=== PATIENT | female | born 1990 | race Caucasian/White ===

== ENCOUNTER → 2019-08-10 | Outpatient (CLI) | payer OTHER ==
[2019-08-10 12:23] LABS: BASO # 0.1 10^3/uL (0.0-0.2); BASO % 0.9 % (0.0-1.0); EOS # 0.2 10^3/uL (0.0-0.5); EOS % 3.3 % (0.0-3.0); HEMATOCRIT 40.2 % (36.0-47.0); HEMOGLOBIN 13.2 g/dl (12.0-15.5); LYMPH # 2.3 10^3/uL (1.5-5.0); LYMPH % 33.6 % (24.0-44.0); MEAN CORPUSCULAR HEMOGLOBIN 29.1 pg (27.0-33.0); MEAN CORPUSCULAR HGB CONC 32.8 g/dl (32.0-36.5); MEAN CORPUSCULAR VOLUME 88.5 fl (80.0-96.0); MONO # 0.5 10^3/uL (0.0-0.8); MONO % 7.1 % (0.0-5.0); NEUTROPHILS # 3.8 10^3/uL (1.5-8.5); NEUTROPHILS % 54.8 % (36.0-66.0); PLATELET COUNT, AUTOMATED 261 10^3/uL (150-450); RED BLOOD COUNT 4.54 10^6/uL (4.00-5.40); WHITE BLOOD COUNT 6.9 10^3/uL (4.0-10.0)
[2019-08-10 13:07] LABS: ALT/SGPT 16 U/L (12-78); BILIRUBIN,TOTAL 0.6 MG/DL (0.2-1.0); BLOOD UREA NITROGEN 14 MG/DL (7-18); CALCIUM LEVEL 9.1 MG/DL (8.5-10.1); CARBON DIOXIDE LEVEL 27 MEQ/L (21-32); CHLORIDE LEVEL 104 MEQ/L (98-107); CREATININE FOR GFR 0.81 MG/DL (0.55-1.30); FREE T4 0.85 NG/DL (0.76-1.46); GLOMERULAR FILTRATION RATE > 60.0 (>60); GLUCOSE, FASTING 99 MG/DL (70-100); POTASSIUM SERUM 4.5 MEQ/L (3.5-5.1); SODIUM LEVEL 139 MEQ/L (136-145); TOTAL 25(OH) VITAMIN D 36.5 NG/ML (30.0-100.0); TOTAL PROTEIN 7.2 GM/DL (6.4-8.2)
== END ==
LOC: M LRY 09:20
PROVIDERS: ATTEND Family Medicine
DX: F41.1 Generalized anxiety disorder (principal)

== ENCOUNTER 2020-05-21 13:02 | Emergency (ER) | payer OTHER ==
[~2020-05-21] VITALS: Ht 170.2 cm; Wt 86.4 kg
[2020-05-21] MEDS ORDERED: HM A10TA PO (13:08)
[2020-05-21] MEDS ORDERED: PROZ20CA11 PO (13:08)
[2020-05-21] MEDS ORDERED: PRENTAB53 PO (13:09)
--- NOTE | 2020-05-21 15:37 | REPVR ---
PROCEDURE INFORMATION: Exam: US First Trimester, Transabdominal Exam date and time: 05/21/2020 3:13 PM Age: 29 years old Clinical indication: complicated by abdominal or pelvic pain; Generalized abdominal pain; First trimester; Gestational age or lmp: 04/13/2020; ; Additional info: HX miscarriage, concerned of TECHNIQUE: Imaging protocol: Real-time transabdominal obstetrical ultrasound of the maternal pelvis and a first trimester , less than 14 weeks 0 days, with image documentation. COMPARISON: No relevant prior studies available. FINDINGS: Gestation: Not demonstrated Embryonic/ heart rate: Embryo not visible. Placenta: Unremarkable. No subchorionic bleed. Amniotic fluid: Amniotic fluid is normal for gestational age. BIOMETRY: Gestational age (AUA): A 7 x 5 x 8 mm ring in the uterine fundus suggests gestational sac with mean diameter of 6.7 mm corresponding to gestational age of 5 weeks 2 days. There is not yet development of a yolk sac or measurable fetus for more definite date. MATERNAL: Uterus: The uterus is anteverted on the transabdominal images and measures 9.2 x 6.1 x 5.5 cm. It is retroverted on the transvaginal images. Cervix: Unremarkable. Right adnexa: The right ovary measures 2.6 x 4 cm and contains a ring lesion measuring 2.2 x 2.4 cm probably representing a corpus luteum with increased peripheral blood flow. Left adnexa: The left ovary measures 2.8 x 2.5 x 1.3 cm. Intraperitoneal space: No intraperitoneal free fluid. IMPRESSION: 1. A 7 x 5 x 8 mm ring in the uterine fundus suggests gestational sac with mean diameter of 6.7 mm corresponding to gestational age of 5 weeks 2 days. There is not yet development of a yolk sac or measurable fetus for more definite date. 2. The right ovary measures 2.6 x 4 cm and contains a ring lesion measuring 2.2 x 2.4 cm probably representing a corpus luteum with increased peripheral blood flow. RECOMMENDATION: Follow-up ultrasound in 1-2 weeks could provide more accurate dating. Electronically signed by: Scar Tena On 05/21/2020 15:36:51 PM
[2020-05-21 16:04] VITALS: BP 115/78
== END 2020-05-21 16:05 | disposition home or self-care (01) ==
LOC: M ED 13:02
DX: Z34.01 Encounter for supervision of normal first pregnancy, first trimester (principal); Z3A.01 Less than 8 weeks gestation of pregnancy; Z79.899 Other long term (current) drug therapy

== ENCOUNTER → 2020-05-29 | Outpatient (CLI) | payer OTHER ==
[~2020-05-29] MED LIST: HM A10TA PO; PRENTAB53 PO; PROZ20CA11 PO
== END ==
LOC: M WUC 11:28
PROVIDERS: ATTEND Family Medicine
DX: O02.81 Inappropriate change in quantitative human chorionic gonadotropin (hCG) in early pregnancy (principal)

== ENCOUNTER → 2020-07-01 | Outpatient (CLI) | payer OTHER | LOC: M PLALAB 14:24 | PROVIDERS: ATTEND Advanced Practice Midwife | DX: Z34.81 Encounter for supervision of other normal pregnancy, first trimester (principal) ==

== ENCOUNTER → 2020-07-01 | Outpatient (REF) | payer OTHER ==
[2020-07-01 17:34] LABS: HEMATOCRIT 35.5 % (36.0-47.0); HEMOGLOBIN 11.4 g/dl (12.0-15.5); MEAN CORPUSCULAR HEMOGLOBIN 28.5 pg (27.0-33.0); MEAN CORPUSCULAR HGB CONC 32.1 g/dl (32.0-36.5); MEAN CORPUSCULAR VOLUME 88.8 fl (80.0-96.0); PLATELET COUNT, AUTOMATED 278 10^3/uL (150-450); WHITE BLOOD COUNT 9.6 10^3/uL (4.0-10.0)
[2020-07-01 18:51] LABS: HEPATITIS C VIRUS ABY INDEX 0.1 INDEX (<0.8); HIV 1&2 SCREEN CENTAUR NEGATIVE (NEGATIVE)
== END ==
LOC: M PLALAB 14:23
PROVIDERS: ATTEND Advanced Practice Midwife
DX: Z34.91 Encounter for supervision of normal pregnancy, unspecified, first trimester (principal)

== ENCOUNTER 2020-07-31 09:23 | Emergency (ER) | payer OTHER ==
[~2020-07-31] VITALS: Ht 170.2 cm; Wt 90.5 kg
[2020-07-31] MEDS ORDERED: BUTA-198 (09:31)
[2020-07-31 09:57] LABS: BASO % 0.3 % (0.0-1.0); EOS # 0.2 10^3/uL (0.0-0.5); EOS % 1.7 % (0.0-3.0); HEMATOCRIT 31.7 % (36.0-47.0); HEMOGLOBIN 10.5 g/dl (12.0-15.5); LYMPH # 2.1 10^3/uL (1.5-5.0); LYMPH % 19.1 % (24.0-44.0); MEAN CORPUSCULAR HEMOGLOBIN 28.8 pg (27.0-33.0); MEAN CORPUSCULAR HGB CONC 33.1 g/dl (32.0-36.5); MEAN CORPUSCULAR VOLUME 86.8 fl (80.0-96.0); MONO # 0.5 10^3/uL (0.0-0.8); NEUTROPHILS # 7.9 10^3/uL (1.5-8.5); NEUTROPHILS % 73.2 % (36.0-66.0); PLATELET COUNT, AUTOMATED 251 10^3/uL (150-450); RED BLOOD COUNT 3.65 10^6/uL (4.00-5.40); WHITE BLOOD COUNT 10.8 10^3/uL (4.0-10.0)
--- NOTE | 2020-07-31 11:10 | REP ---
INDICATION: 15.5 weeks, heavy vaginal bleeding, lower pelvic pain COMPARISON: 05/21/2020 TECHNIQUE: Transabdominal obstetrical ultrasound with color Doppler evaluation. FINDINGS: Examination demonstrates a single live intrauterine in variable presentation. motion is identified by technologist. Placenta is noted posterior and grade 0 without evidence for placenta previa or abruption. Amniotic fluid volume is normal. Cervix measures 3.1 cm in length and appears closed.. Gestational age by LMP 15 weeks 4 days with ANILA 01/18/2021. Gestational age by current measurements 15 weeks 6 days with ANILA 01/16/2021. FHR equals 156 beats per minute. BPD: 3.3 cm 16 weeks 1 day HC: 12.0 cm 16 weeks 0 days AC: 9.8 cm 15 weeks 6 days FL: 1.9 cm 15 weeks 5 days HL: 1.9 cm 15 weeks 4 days HC/AC: 1.22 Estimated weight 137 grams (65thpercentile). Anatomical assessment demonstrates normal structures including cranium, choroid plexus, cavum, cerebellum/posterior fossa, lungs, diaphragm, stomach, cord insertion/three-vessel cord, kidneys/bladder, spine, and extremities. Incomplete evaluation of the facial features, and heart/ventricular outflow tracts. IMPRESSION: Single live intrauterine in variable presentation demonstrating appropriate estimated weight and growth. Anatomical assessment is incomplete and warrants re-evaluation/follow-up. <Electronically signed by Alec Zamorano > 07/31/20 [id number]
[2020-07-31 11:33] VITALS: BP 120/62
== END 2020-07-31 11:35 | disposition home or self-care (01) ==
LOC: M ED 09:23
DX: O26.852 Spotting complicating pregnancy, second trimester (principal); O99.012 Anemia complicating pregnancy, second trimester; O99.342 Other mental disorders complicating pregnancy, second trimester; F41.9 Anxiety disorder, unspecified; Z3A.15 15 weeks gestation of pregnancy; Z79.899 Other long term (current) drug therapy; Z91.048 Other nonmedicinal substance allergy status

== ENCOUNTER → 2020-08-20 | Outpatient (CLI) | payer OTHER ==
[~2020-08-20] MED LIST changes: +BUTA-198
--- NOTE | 2020-08-20 12:45 | REP ---
INDICATION: ANATOMY. COMPARISON: None. TECHNIQUE: Ultrasound evaluation of the gravid uterus. FINDINGS: Single intrauterine gestation in a transverse lie with the head to the maternal right. The plan is placenta is posterior grade 0 maturity. There is no placenta previa. The placental insertion of the umbilical cord could not be identified. There is a three-vessel cord. Cervix measures 3.1 cm length. heart rate is 172 beats per minute. The amniotic fluid volume is severely diminished compatible with severe oligohydramnios. The composite ultrasound gestational age today is 17 weeks 3 days with an ANILA of 01/25/2021. Gestational age by LMP is 18 weeks 3 days with an ANILA of 01/18/2021. Estimated weight is 211 g, 0 lb-7 oz. This is the 16th percentile for 18 weeks 3 days. The following anatomic structures are identified and are unremarkable: Cranium, cavum septum pellucidum, falx, intracranial ventricles, choroid plexus, cerebellum, cisterna magna, stomach, bladder, right and left upper extremities, right left lower extremities, 3 vessel cord. Suboptimally demonstrated because of severe leg all hydramnios are the facial profile, upper lip, four-chamber view of the heart, cardiac left ventricular outflow tracts, diaphragm, right left kidneys and spine. IMPRESSION: Severe oligohydramnios. <Electronically signed by Jose Canales > 08/20/20 [id number]
== END ==
LOC: M WHC 11:01
PROVIDERS: ATTEND Specialist
DX: O41.02X0 Oligohydramnios, second trimester, not applicable or unspecified (principal); Z3A.17 17 weeks gestation of pregnancy
CPT/HCPCS: 76811; G0463

== ENCOUNTER 2020-08-26 13:30 | Inpatient (IN) | payer OTHER ==
[~2020-08-26] VITALS: Ht 170.2 cm; Wt 91.7 kg
[2020-08-26 13:46] VITALS: BP 115/56
[2020-08-26 14:25] LABS: BASO % 0.3 % (0.0-1.0); EOS # 0.2 10^3/uL (0.0-0.5); EOS % 1.3 % (0.0-3.0); HEMATOCRIT 30.9 % (36.0-47.0); HEMOGLOBIN 10.1 g/dl (12.0-15.5); LYMPH # 2.3 10^3/uL (1.5-5.0); LYMPH % 20.4 % (24.0-44.0); MEAN CORPUSCULAR HEMOGLOBIN 29.3 pg (27.0-33.0); MEAN CORPUSCULAR HGB CONC 32.7 g/dl (32.0-36.5); MEAN CORPUSCULAR VOLUME 89.6 fl (80.0-96.0); MONO # 0.5 10^3/uL (0.0-0.8); MONO % 4.8 % (0.0-5.0); NEUTROPHILS # 8.2 10^3/uL (1.5-8.5); NEUTROPHILS % 72.6 % (36.0-66.0); PLATELET COUNT, AUTOMATED 233 10^3/uL (150-450); RED BLOOD COUNT 3.45 10^6/uL (4.00-5.40); WHITE BLOOD COUNT 11.3 10^3/uL (4.0-10.0)
[2020-08-26] MEDS: miSOPROStol 200 MCG TAB (S0191) PO SCH ×3 (14:30→22:37)
[2020-08-26] MEDS: LR 1,000 ML IV SCH ×2 (14:31→22:36)
[2020-08-26 14:32] VITALS: BP 114/64
[2020-08-26 14:49] VITALS: BP 105/55
[2020-08-26 15:37] VITALS: BP 99/61
[2020-08-26 17:05] VITALS: BP 114/59
[2020-08-26 17:08] VITALS: BP 114/59
--- NOTE | 2020-08-26 18:42 | HPE ---
HISTORY AND PHYSICAL DATE OF ADMISSION: 08/26/2020 HISTORY OF PRESENT ILLNESS: Nara is a 29-year-old female 5, para 3-0-1-3, who is approximately 18 week gestation with an intrauterine demise (IUFD). She was also found to be anhydramnios on ultrasound. She did not report any leakage of fluid. She was sent here [facility] for admission to induce labor for the demise. Upon admission, the patient denies any bleeding. Occasional cramping. She has not had a heart beat since 08/22. She had an ultrasound today that again confirmed no heart beat. No fluid. Her record reviewed which was essentially unremarkable except for the last week with compliance of decreased fluid and now with no fluid. She was referred to the center for severe oligohydramnios. PAST MEDICAL HISTORY: 1. Abnormal Pap smear. 2. Anxiety and depression. PAST SURGICAL HISTORY: 1. [place] tooth extraction. 2. Colposcopy. SOCIAL HISTORY: The patient denies any alcohol, drug, or cigarette smoking. REVIEW OF SYSTEMS: Unremarkable. ALLERGIES: No known drug allergies. MEDICATIONS: vitamin. LABORATORY DATA: Blood type is AB negative. Rubella immune. Hepatitis negative. HIV negative. PHYSICAL EXAMINATION: GENERAL: Obese female in no acute distress. ABDOMEN: Soft, nontender, and nondistended. EXTREMITIES: No clubbing, cyanosis, or edema. VAGINAL: Fingertip, thick, and posterior. ASSESSMENT: 1. Intrauterine at 18 weeks with an intrauterine demise. 2. Anhydramnios. No evidence of rupture of membrane. PLAN: Patient admitted to labor and delivery. The process of induction of labor for demise was explained to the patient in great detail. We will proceed with Cytotec induction. Pain management also discussed. The patient is considering option. All questions answered. We will continue to monitor. [facility]
[2020-08-26] MEDS ORDERED: ONDANSETRON 4MG/2ML VIAL IV ONE (19:30)
[2020-08-26] MEDS ORDERED: FIORICET TAB PO ONE (19:30)
[2020-08-27] VITALS (7 sets, daily range): BP systolic 96–107; BP diastolic 52–64
[2020-08-27] MEDS ORDERED: PROMETHAZINE INJ 25 MG/ML VIAL (J2550) IV ONE ×2 (02:45→09:45)
[2020-08-27] MEDS ORDERED: BUTORPHANOL 2 MG/ML INJ (J0595) IV ONE (02:45)
[2020-08-27] MEDS: LR 1,000 ML IV SCH ×2 (04:52→09:35)
[2020-08-27] MEDS ORDERED: miSOPROStol 200 MCG TAB (S0191) PO ONE (08:00)
[2020-08-27] MEDS ORDERED: OXYTOCIN 30 UNITS IN 0.9% NaCl 500ML IV BAG (J2590) As Ordered ONE (10:31)
[2020-08-27] MEDS ORDERED: OXYTOCIN DRIP 30 UNITS in IV 1 EA IV SCH (11:02)
[2020-08-27] MEDS ORDERED: METHYLERGONOVINE MALEATE 0.2 MG TAB PO PRN (11:15)
[2020-08-27] MEDS ORDERED: DOCUSATE SODIUM 100MG CAPSULE PO PRN (11:15)
[2020-08-27] MEDS ORDERED: MEASLES,MUMPS,RUBELLA VACCINE INJ (MMR-II) (90707) SC SCH (11:15)
[2020-08-27] MEDS ORDERED: IBUPROFEN 600MG TAB PO PRN (11:15)
[2020-08-27] MEDS ORDERED: ACETAMINOPHEN 500 MG TAB PO PRN (11:15)
[2020-08-27] MEDS ORDERED: miSOPROStol 200 MCG TAB (S0191) PR ONE (11:15)
[2020-08-27] MEDS ORDERED: BENZOCAINE 20% HEMORRHOIDAL OINTMENT 28GM TUBE TOP PRN (11:15)
[2020-08-27] MEDS ORDERED: IBUPROFEN 800 MG TAB PO PRN (11:15)
[2020-08-27] MEDS ORDERED: RHOGAM 300 MCG (1500 IU) INJ (J2790) IM SCH (11:15)
[2020-08-27] MEDS ORDERED: ACETAMINOPHEN TAB 650MG DOSE (2X325MG) PO PRN (11:15)
--- NOTE | 2020-08-27 11:59 | DN ---
DELIVERY NOTE DATE OF DELIVERY: 08/27/2020 TIME OF : 10:28 DESCRIPTION OF DELIVERY: Nara is a 29-year-old 5, para 3-0-2-3 now, who was admitted to labor and delivery for induction of labor due to an IUFD at 19 plus weeks. Misoprostol was utilized and labor ensued. She used IV pain medications to cope with her discomfort. She had a spontaneous vaginal delivery of a 19 week fetus at 10:28. No cardiac activity. Cord was clamped and cut by myself. Spontaneous expulsion of an intact placenta at 10:33. Uterine hemostasis achieved with IV Pitocin rapid infusion and uterine fundal massage. Misoprostol 1000 mcg per rectum. Perineum and vagina inspected and noted to be intact. Mom is appropriate in holding her fetus at this time. Name has not been determined. Uncertain if she desires genetic testing. Declined autopsy. Would like to go home later today.
[2020-08-28] MEDS ORDERED: PRENATAL VITAMINS CHEWABLE TABLET PO SCH (09:00)
[2020-08-28 19:09] LABS: CYTOMEGALOVIRUS IgG ANTIBODY <0.60 U/mL (0.00-0.59); CYTOMEGALOVIRUS IgM ANTIBODY <30.0 AU/mL (0.0-29.9); HSV IgM TYPES 1&2 <0.91 Ratio (0.00-0.90); HSV TYPE I IgG SPECIFIC <0.91 index (0.00-0.90); HSV TYPE II IgG SPECIFIC <0.91 index (0.00-0.90); RUBELLA IgG FOR TORCH EVAL 8.73 index (Immune >0.99); RUBELLA IgM FOR TORCH EVAL <20.0 AU/mL (0.0-19.9); TOXOPLASMA IgG ABY <3.0 IU/mL (0.0-7.1)
== END 2020-08-27 16:56 | disposition home or self-care (01) | DRG 779 ==
LOC: M LDI 13:30
PROVIDERS: ADMIT Obstetrics & Gynecology; ATTEND Advanced Practice Midwife
PROC: 3E0P7GC Introduction of Other Therapeutic Substance into Female Reproductive, Via Natural or Artificial Opening (ICD-10-PCS; principal; 2020-08-26)
DX: O02.1 Missed abortion (principal); O41.01X0 Oligohydramnios, first trimester, not applicable or unspecified; Z3A.18 18 weeks gestation of pregnancy

== ENCOUNTER → 2020-10-08 | Outpatient (REF) | payer OTHER ==
[2020-10-09 10:04] LABS: DRVV SCREEN 40.6 SEC
== END ==
LOC: M PLALAB 10:52
PROVIDERS: ATTEND Obstetrics & Gynecology
DX: Z87.59 Personal history of other complications of pregnancy, childbirth and the puerperium (principal)

== ENCOUNTER → 2021-01-27 | Outpatient (CLI) | payer OTHER ==
[~2021-01-27] MED LIST changes: +CETI-39 PO; -HM A10TA PO
[2021-01-27 11:57] LABS: BLOOD UREA NITROGEN 10 MG/DL (7-18); CALCIUM LEVEL 9.9 MG/DL (8.5-10.1); CARBON DIOXIDE LEVEL 28 MEQ/L (21-32); CHLORIDE LEVEL 108 MEQ/L (98-107); CREATININE FOR GFR 0.71 MG/DL (0.55-1.30); FREE T4 0.78 NG/DL (0.76-1.46); GLOMERULAR FILTRATION RATE > 60.0 (>60); GLUCOSE, FASTING 96 MG/DL (70-100); POTASSIUM SERUM 4.9 MEQ/L (3.5-5.1); SODIUM LEVEL 140 MEQ/L (136-145)
[2021-01-27 12:11] LABS: HEMOGLOBIN A1c 4.9 %
== END ==
LOC: M WUC 09:33
PROVIDERS: ATTEND Physician Assistant
DX: E66.8 Other obesity (principal)

== ENCOUNTER → 2021-02-16 | Outpatient (REF) | payer OTHER | LOC: M PLALAB 15:19 | PROVIDERS: ATTEND Obstetrics & Gynecology | DX: Z33.1 Pregnant state, incidental (principal) ==

== ENCOUNTER → 2021-02-18 | Outpatient (REF) | payer OTHER | LOC: M PLALAB 15:36 | PROVIDERS: ATTEND Obstetrics & Gynecology | DX: Z33.1 Pregnant state, incidental (principal) ==

== ENCOUNTER → 2021-03-04 | Outpatient (CLI) | payer OTHER ==
--- NOTE | 2021-03-04 10:46 | REP ---
INDICATION: PREG DATING VIABILITY. COMPARISON: None. TECHNIQUE: Transvesical scanning only FINDINGS: Within the uterus there is an anechoic structure with increased echoes surrounding it consistent with a decidual reaction. Within the gestational sac there is echogenic material consistent with a pole the mean crown-rump length measurement of which is consistent with a 7 week 2 day gestational age. Based on that the estimated date of delivery is 10/19/2021. Doppler interrogation of the pole shows a heart rate of 135 beats per minute. Within the gestational sac there is a tiny anechoic structure consistent with a yolk sac. Just superior to the gestational sac there is a small area of decreased echoes. IMPRESSION: Early OB ultrasound as described above. The small area of decreased echoes seen superior to the to station sac likely represents a small area of chorionic nonfusion during this early stage of , however, if the patient is experiencing vaginal bleeding than the finding could represent a small subchorionic hemorrhage for which follow-up would be recommended. <Electronically signed by Manny Wray > 03/04/21 0423
== END ==
LOC: M RAD 09:39
PROVIDERS: ATTEND Obstetrics & Gynecology
DX: O09.299 Supervision of pregnancy with other poor reproductive or obstetric history, unspecified trimester (principal); O36.80X0 Pregnancy with inconclusive fetal viability, not applicable or unspecified; Z3A.01 Less than 8 weeks gestation of pregnancy

== ENCOUNTER → 2021-04-02 | Outpatient (CLI) | payer OTHER | LOC: M PLALAB 14:15 | PROVIDERS: ATTEND Obstetrics & Gynecology | DX: Z34.81 Encounter for supervision of other normal pregnancy, first trimester (principal); Z3A.00 Weeks of gestation of pregnancy not specified ==

== ENCOUNTER → 2021-04-09 | Outpatient (CLI) | payer OTHER ==
[2021-04-09 11:05] LABS: BASO % 0.4 % (0.0-1.0); EOS # 0.1 10^3/uL (0.0-0.5); EOS % 1.4 % (0.0-3.0); HEMATOCRIT 35.8 % (36.0-47.0); HEMOGLOBIN 11.8 g/dl (12.0-15.5); LYMPH # 1.8 10^3/uL (1.5-5.0); LYMPH % 19.8 % (24.0-44.0); MEAN CORPUSCULAR HEMOGLOBIN 28.7 pg (27.0-33.0); MEAN CORPUSCULAR VOLUME 87.1 fl (80.0-96.0); MONO # 0.5 10^3/uL (0.0-0.8); NEUTROPHILS # 6.6 10^3/uL (1.5-8.5); NEUTROPHILS % 72.7 % (36.0-66.0); PLATELET COUNT, AUTOMATED 264 10^3/uL (150-450); RED BLOOD COUNT 4.11 10^6/uL (4.00-5.40); WHITE BLOOD COUNT 9.1 10^3/uL (4.0-10.0)
[2021-04-09 11:55] LABS: HEPATITIS C VIRUS ABY INDEX 0.1 INDEX (<0.8); HIV 1&2 SCREEN CENTAUR NEGATIVE (NEGATIVE)
[2021-04-09 12:41] LABS: GC DNA AMPLIFICATION NEGATIVE (NEGATIVE)
== END ==
LOC: M PLALAB 09:18
PROVIDERS: ATTEND Obstetrics & Gynecology
DX: O09.291 Supervision of pregnancy with other poor reproductive or obstetric history, first trimester (principal)
CPT/HCPCS: 36415; 85025; 86762; 86780; 86803; 86850; 86900; 86901; 87340; 87389; 87491; 87591; G0463

== ENCOUNTER → 2021-06-18 | Outpatient (CLI) | payer OTHER ==
[~2021-06-18] MED LIST changes: -CETI-39 PO; +CETI-43 PO
--- NOTE | 2021-06-18 14:49 | REP ---
INDICATION: ANATOMY COMPARISON: 03/04/2021 TECHNIQUE: Transabdominal obstetrical ultrasound with color Doppler evaluation. FINDINGS: Examination demonstrates a single live intrauterine in variable presentation. motion is identified by technologist. Placenta is noted posterior and grade 0 without evidence for placenta previa or abruption. Amniotic fluid volume is normal. Cervix measures 4.6 cm in length and appears closed.. Selected gestational age: 22 weeks 2 days with ANILA 10/20/2021. Gestational age by current measurements 22 weeks 5 days with ANILA 10/17/2021. FHR equals 153 beats per minute. BPD: 5.4 cm at 22 weeks 2 days HC: 19.9 cm at 22 weeks 1 day AC: 17.4 cm at 22 weeks 6 days FL: 4.0 cm at 23 weeks 0 days HL: 3.8 cm at 23 weeks 4 days HC/AC: 1.15 Estimated weight 513 grams (56thpercentile). Anatomical assessment demonstrates normal structures including cranium, choroid plexus, cavum, cerebellum/posterior fossa, facial features, lungs, four-chamber heart/ventricular outflow tracts, diaphragm, stomach, cord insertion/three-vessel cord, kidneys/bladder, spine, and extremities. IMPRESSION: Single live intrauterine in variable presentation demonstrating appropriate estimated weight. Anatomical assessment is complete and normal. <Electronically signed by Alec Zamorano > 06/18/21 [id number]
== END ==
LOC: M WHC 12:42
PROVIDERS: ATTEND Obstetrics & Gynecology
DX: O09.292 Supervision of pregnancy with other poor reproductive or obstetric history, second trimester (principal); Z3A.22 22 weeks gestation of pregnancy

== ENCOUNTER → 2021-07-09 | Outpatient (CLI) | payer OTHER ==
[2021-07-09 15:37] LABS: HEMATOCRIT 34.5 % (36.0-47.0); HEMOGLOBIN 11.5 g/dl (12.0-15.5); MEAN CORPUSCULAR HEMOGLOBIN 30.9 pg (27.0-33.0); MEAN CORPUSCULAR HGB CONC 33.3 g/dl (32.0-36.5); MEAN CORPUSCULAR VOLUME 92.7 fl (80.0-96.0); PLATELET COUNT, AUTOMATED 227 10^3/uL (150-450); RED BLOOD COUNT 3.72 10^6/uL (4.00-5.40); WHITE BLOOD COUNT 11.6 10^3/uL (4.0-10.0)
== END ==
LOC: M PLALAB 11:36
PROVIDERS: ATTEND Obstetrics & Gynecology
DX: O09.292 Supervision of pregnancy with other poor reproductive or obstetric history, second trimester (principal); Z3A.00 Weeks of gestation of pregnancy not specified

== ENCOUNTER → 2021-09-23 | Outpatient (REF) | payer OTHER ==
[~2021-09-23] MED LIST changes: -CETI-43 PO; +GNPTAB36 PO
== END ==
LOC: M SFHCWAGY 16:41
PROVIDERS: ATTEND Obstetrics & Gynecology
DX: Z36.85 Encounter for antenatal screening for Streptococcus B (principal); O09.293 Supervision of pregnancy with other poor reproductive or obstetric history, third trimester; Z3A.00 Weeks of gestation of pregnancy not specified
CPT/HCPCS: 59025; 87081; G0463